=== PATIENT | male | born 1990 | race Caucasian/White ===

== ENCOUNTER 2016-12-31 13:48 | Emergency (ER) | payer MEDICAID ==
[~2016-12-31] VITALS: Ht 175.2 cm; Wt 68.0 kg
[2016-12-31] MEDS ORDERED: IMODIUM A-D2 M3 PO (14:02)
[2016-12-31] MEDS ORDERED: GABAPENTIN TAB600 MG PO (14:02)
[2016-12-31] MEDS ORDERED: CLONIDINE HCL0.1 MG PO (14:02)
[2016-12-31] MEDS ORDERED: HYDROXYZINE HCL25 M1 PO (14:03)
== END 2016-12-31 14:21 | disposition home or self-care (01) ==
LOC: ED 13:48
DX: G47.00 Insomnia, unspecified (principal); T42.6X5A Adverse effect of other antiepileptic and sedative-hypnotic drugs, initial encounter; T43.595A Adverse effect of other antipsychotics and neuroleptics, initial encounter; T46.5X5A Adverse effect of other antihypertensive drugs, initial encounter; T47.6X5A Adverse effect of antidiarrheal drugs, initial encounter; R03.0 Elevated blood-pressure reading, without diagnosis of hypertension; F17.200 Nicotine dependence, unspecified, uncomplicated; Y92.9 Unspecified place or not applicable

== ENCOUNTER 2017-10-15 08:56 | Emergency (ER) | payer OTHER ==
[~2017-10-15] VITALS: Ht 175.2 cm; Wt 81.6 kg
[~2017-10-15 08:56] MED LIST: CLONIDINE HCL0.1 MG PO; GABAPENTIN TAB600 MG PO; HYDROXYZINE HCL25 M1 PO; IMODIUM A-D2 M3 PO
[2017-10-15] MEDS ORDERED: FLONASE ALLERG9.9 ML NAS (09:01)
[2017-10-15] MEDS ORDERED: CLARITIN10 MG PO (09:01)
== END 2017-10-15 09:14 | disposition home or self-care (01) ==
LOC: ED 08:56
DX: H10.13 Acute atopic conjunctivitis, bilateral (principal); R03.0 Elevated blood-pressure reading, without diagnosis of hypertension; Z98.890 Other specified postprocedural states; Z79.899 Other long term (current) drug therapy